=== PATIENT | female | born 1930 | race Caucasian/White ===

== ENCOUNTER 2016-09-25 11:15 | Inpatient (IN) | payer MEDICARE, BC, MEDICAID ==
[~2016-09-25] VITALS: Ht 160 cm; Wt 73.2 kg
--- NOTE | ~2016-09-25 | DS ---
[facility] 86 Y [address] ROOM: [place] [address] LOCATION: GPCU ADMIT DATE: 09/25/2016 Discharge Summary DISCHARGE DATE: 09/30/2016 FAMILY PHYSICIAN: Pancho Coronel MD ATTENDING PHYSICIAN: Aubrey Hameed V ANTICIPATED DATE OF DISCHARGE: 09/30/2016. PRIMARY DIAGNOSES FOR THIS HOSPITALIZATION: 1. Nephrotic syndrome. 2. Anasarca. CHRONIC DIAGNOSES: 1. Severe Alzheimer's dementia. 2. Essential hypertension. PROCEDURES PERFORMED: The procedures performed was a kidney biopsy. CONSULTANTS: The consultants who follows the patient is Dr. Ahmadi of Nephrology. SUMMARY OF HOSPITALIZATION: This is an 86-year-old female who was admitted to the hospital with profound anasarca. The patient was initially on Bumex drip and subsequently on IV Bumex with remarkable improvement (she diuresed for approximately 15 L). She has undergone a kidney biopsy on the 29 of September without any complications. At this point, the patient is ready to be discharged back to the [facility] facility, where she resides. She is to follow up with primary care provider, Pancho Coronel, and she will receive a call from Dr. Ahmadi's office with an appointment once the kidney biopsy results are back. DISCHARGE MEDICATIONS: Her medications all remain the same except for the addition of Bumex 1 mg p.o. every morning, Zaroxolyn 5 mg every morning, and potassium chloride 40 mEq p.o. every morning. She is not to resume aspirin for 1 week from today. She is to receive regular electrolyte checks every 3 days until they stabilize as she will be on high-dose diuretic. Time dedicated to this patient encounter is 35 minutes. PATIENT'S NAME: FELIPE ROD [facility] AGE: 86 Y [address] ROOM: [place] [address] LOCATION: GPCU ADMIT DATE: 09/25/2016 Discharge Summary DISCHARGE DATE: 09/30/2016 FAMILY PHYSICIAN: Pancho Coronel MD ATTENDING PHYSICIAN: Aubrey Hameed MD AVK/modl /[id number] CC: Pancho Coronel MD d: 10/01/16 0331 t: 10/16/16 0515, DISCHARGE SUMMARY
--- NOTE | ~2016-09-25 | HP ---
PATIENT'S NAME: [facility] AGE: 86 Y [address] ROOM: [place] [address] LOCATION: GPCU ADMIT DATE: 09/25/2016 History & Physical DISCHARGE DATE: FAMILY PHYSICIAN: Pancho Coronel MD ATTENDING PHYSICIAN: CHANDLER ESPOSITO V DATE OF SERVICE: CHIEF COMPLAINT: Anasarca. HISTORY OF PRESENT ILLNESS: This is obtained entirely from the transferring physician and medical records. This is an 86-year-old female with advanced dementia, who was being treated as outpatient for worsening acute kidney injury and anasarca. Today, Dr. Ahmadi decided that the patient needs to be admitted for Bumex drip and further workup. The patient is quite demented, and at this point, volunteers no complaints aside from not wanting to be here. She is alert and oriented x1. REVIEW OF SYSTEMS: She denies any chest pain, shortness of breath, nausea, vomiting, diarrhea, or diaphoresis. All systems have been reviewed and negative aside from pertinent positives as mentioned above. PAST MEDICAL HISTORY: As extracted from our records as well as custodial documentation is remarkable for Alzheimer's dementia quite advanced, insulin-dependent diabetes, essential hypertension, GERD, hyponatremia, constipation, ulcerative colitis, hyperlipidemia, allergic rhinitis, cataracts, artificial hip, epilepsy though not further clarified, vitamin D deficiency. FAMILY HISTORY: Cannot be completed due to dementia. SOCIAL HISTORY: Cannot be done due to dementia. CURRENT MEDICATIONS ARE: 1. Aspirin. 2. Colace. 3. Dilantin. 4. Donepezil. 5. Dulcolax. 6. Fish oil. PATIENT'S NAME: [facility] AGE: 86 Y [address] ROOM: [place] [id number] LOCATION: GPCU ADMIT DATE: 09/25/2016 History & Physical DISCHARGE DATE: FAMILY PHYSICIAN: Pancho Coronel MD ATTENDING PHYSICIAN: CHANDLER ESPOSITO V 7. Glucagon. 8. 120 of Lasix daily. 9. Losartan. 10. Milk of magnesia. 11. Minocycline. 12. Multivitamin. 13. Namenda. 14. Nasal saline. 15. Omeprazole. 16. MiraLAX. 17. Potassium chloride. 18. Metformin. 19. Sulfasalazine. 20. Tums. 21. Tylenol Extra Strength. 22. Vitamin D3. PHYSICAL EXAMINATION: VITAL SIGNS: Blood pressure of 190s over 80s, heart rate is in the 80s, saturating 97% on room air, afebrile, respirations 16. GENERAL: Appears as an elderly frail female, in no acute distress. NEUROLOGICAL: Nonfocal. PSYCHIATRIC: Reveals quite a depressed mood and lack of orientation to time or place. LUNGS: Significant for crackles at bases bilaterally, extending approximately 1[address] HEART. Regular rate and rhythm without appreciable murmurs, gallops, or rubs. GI: Abdomen is soft, nontender, nondistended. : Reveals no costovertebral angle tenderness. VASCULAR: Reveals 2+ pedal pulses and a diffuse whole body anasarca. SKIN: Warm and dry. MUSCULOSKELETAL: Deferred. LABORATORY DATA: No studies are available as of yet. ASSESSMENT AND PLAN: This is an 86-year-old female who will be admitted with, 1. Acute kidney injury/anasarca and this will be worked up by Nephrology Service and we will defer to them. We will get just basic baseline electrolytes. 2. Documented history of diabetes. We will follow her Accu-Cheks and decide whether coverage is needed or not. 3. History of ulcerative colitis. We will continue her on sulfasalazine. 4. Dementia. Continue Namenda and Aricept. PATIENT'S NAME: FELIPE ROD [facility] AGE: 86 Y [address] ROOM: [place] [address] [facility] ADMIT DATE: 09/25/2016 History & Physical DISCHARGE DATE: FAMILY PHYSICIAN: Pancho Coronel MD ATTENDING PHYSICIAN: CHANDLER ESPOSITO V 5. Goals of care. This clear documentation of DNR/DNI and her custodial record and we will respect those wishes. We will confirm with family members, once they arrive. 6. Accelerated hypertension. This is likely due to nephrotic syndrome. We will control the patient's blood pressure with calcium channel blockers. 7. Additional management depend on clinical course. Time dedicated to the patient's encounter is 35 minutes. MD STEVE TEE/robinson /[id number] D: [id number] T: [id number] HISTORY & PHYSICAL
--- NOTE | ~2016-09-25 | CON ---
PATIENT'S NAME: FELIPE ROD [facility] AGE: 86 Y [address] ROOM: [id number] [place], [place] [address] LOCATION: GPCU ADMIT DATE: 09/25/2016 Consultation DISCHARGE DATE: FAMILY PHYSICIAN: Pancho Coronel MD ATTENDING PHYSICIAN: CHANDLER ESPOSITO V DATE OF CONSULTATION: 09/25/2016 FAMILY PHYSICIAN: Dr. Zhao. REQUESTING PHYSICIAN: Hospitalist Dr. Esposito. REASON FOR CONSULTATION: Generalized edema and proteinuria. HISTORY OF PRESENT ILLNESS: The patient is an 86-year-old white female, with history of dementia. She had a fall approximately 2 years ago fracturing her pelvis and since then, she has been at [facility]. The patient reports that she had borderline diabetes and she is on diet control but I noticed that her recent hemoglobin A1c was less than 4.0. She was in her usual state until in the mid of the August, she started noticing swelling of her lower extremities. She gained more than 20 pounds over the last one month. Her usual dose of Lasix 40 mg was increased to 80 mg 3 times a day but she continues to gain weight. At this point, Dr. Sierra did try to collect 24-urine. Unfortunately, the collection was inadequate, but she was noted to have 405 mg of protein and the urine volume was only 325 mL. The patient did have echocardiogram, ejection fraction was 60%. She had left ventricular hypertrophy. She also had a CT scan of the abdomen and pelvis as there was some mass in the abdomen, pelvis, or inguinal region. Bilateral kidneys were unremarkable. Her creatinine on September 23, 2016, was 0.6 but her albumin was low at 1.9. She is very uncomfortable with her leg swelling. She therefore had to be admitted to the hospital for further workup and management. REVIEW OF SYSTEMS: GENERAL: She gained about 25 pounds over the last one month. HEENT: Denies any sore throat or sinus congestion. CARDIOVASCULAR: Denies any chest pain, dyspnea on exertion. RESPIRATORY: Denies any cough or sputum production. GASTROINTESTINAL: Denies any abdominal pain, nausea, or vomiting. GENITOURINARY: Denies any dysuria. MUSCULOSKELETAL: She has pain in the legs. SKIN: Denies any rash or pruritus. [facility]GE: 86 Y [address] ROOM: [address] [address] [facility] ADMIT DATE: 09/25/2016 Consultation DISCHARGE DATE: FAMILY PHYSICIAN: Pancho Coronel MD ATTENDING PHYSICIAN: CHANDLER ESPOSITO V IMMUNOLOGIC: Denies any allergies or hay fever. LYMPHATICS: Denies any lymph node enlargement. HEMATOLOGIC: Denies any easy bruising. ENDOCRINE: Denies any heat or cold intolerance. PSYCHIATRY: Denies any sadness, crying spells, poor concentration, or panic attack. ALLERGIES: ALLERGIC TO PENICILLIN. MEDICATIONS: Medicines at the senior living include. 1. Namenda 10 mg a day. 2. Huckabay nasal spray. 3. Omeprazole 20 mg a day. 4. Polyethylene glycol 17 g p.r.n. 5. Potassium 10 mEq a day. 6. Simethicone 125 mg a day. 7. Sulfasalazine 500 mg 3 times a day. 8. Tums 500 mg 2 tablets p.r.n. 9. Tylenol p.r.n. 10. Vitamin D3 400 international units a day. 11. Dulcolax 10 mg p.r.n. 12. Ensure liquid every day. 13. Glucagon p.r.n. 14. Glucose p.r.n. 15. Lasix 80 mg 3 times a day. 16. Levothyroxine 175 mcg a day. 17. Losartan 100 mg once a day. 18. Milk of magnesia every day. 19. Minocycline 100 mg every day. 20. Multivitamin once a day. 21. Aspirin 81 mg a day. 22. Colace 100 mg a day. 23. Dilantin 100 mg 3 times a day. 24. Donepezil 10 mg every day. PAST MEDICAL HISTORY: Dementia, osteoporosis, status post fracture of the hip, sinusitis, reflux esophagitis, pernicious anemia, vitamin D deficiency, diarrhea by history, diabetes mellitus by history, dysuria, hypertension, palpitation, hypothyroidism, hyponatremia, seizure disorder, hyperlipidemia, benign neoplasm of the skin, allergic rhinitis, glaucoma, anxiety. PAST SURGICAL HISTORY: PATIENT'S NAME: [facility] AGE: 86 Y [address] ROOM: [id number] [place], [place] [address] [facility] ADMIT DATE: 09/25/2016 Consultation DISCHARGE DATE: FAMILY PHYSICIAN: Panhco Coronel MD ATTENDING PHYSICIAN: CHANDLER ESPOSITO V Appendectomy, cholecystectomy, tonsillectomy. SOCIAL HISTORY: She lives in [facility] over the last 2 years ago. Her family is involved in her care. No history of tobacco or alcohol. FAMILY HISTORY: No family history of kidney disease or dialysis. PHYSICAL EXAMINATION: GENERAL: This is an 86-year-old white female, sitting in the wheelchair, looks tired. VITAL SIGNS: Temperature 99.3, pulse 82, systolic blood pressure 164, diastolic 68, weight is 195.6 pounds. HEENT: Head is normocephalic. Pupils are round and equal. Normal eyelid and pale conjunctivae. Oral cavity clear. Loss of tooth. Dry mucosa. NECK: Trachea is central. No thyromegaly. Unable to evaluate jugular venous pulsation. HEART: Sounds are audible in all the areas without any gallop or murmur. There is no peripheral rub. Pulses regular in rhythm. LUNGS: Bilaterally clear to auscultate. No intercostal retraction. ABDOMEN: Obese, soft, nontender, could not palpate the liver or spleen. EXTREMITIES: She has no clubbing or cyanosis. She has 3+ leg edema all the way up to her hip. SKIN: No sign of vasculitis. LYMPHATICS: I did not examine lymphatics. HIGHER PSYCHIATRIC FUNCTION: She has poor memory. LABORATORY DATA: Blood work from September 23, 2016, shows glucose 89, BUN of 19, creatinine of 0.67, sodium 132, potassium 4.3, chloride 100, bicarbonate 27.5, calcium 7.9, albumin of 1.9. ASSESSMENT: 1. Generalized edema. Most likely, this is from nephrotic syndrome. The patient does not have any long liver disease. She has preserved systolic function of the heart. She does have some diastolic dysfunction, probably with her LVH. She, however, has proteinuria and her albumin is low at 1.9. 2. History of hyponatremia. 3. Dementia. 4. Hypothyroidism. 5. History of seizure disorder. 6. Hyperlipidemia. PATIENT'S NAME: FELIPE ROD [facility] AGE: 86 Y [address] ROOM: [id number] [place], [place] [address] LOCATION: GPCU ADMIT DATE: 09/25/2016 Consultation DISCHARGE DATE: FAMILY PHYSICIAN: Pancho Coronel MD ATTENDING PHYSICIAN: CHANDLER ESPOSITO V PLAN: She has massive edema and she has also swelling of the lower abdomen. She has generalized edema now. I agree that she needs to be hospitalized. We will start her on intravenous Bumex drip along with intravenous albumin. I did order all the serologic studies including hepatitis B and C. We will check coagulation profile and the patient will need a CT-guided kidney biopsy. We will insert a Sanches catheter. Collect urine for urine studies including immunoelectrophoresis. I will follow her electrolytes very closely while she is in the hospital. I would like to thank Dr. Esposito for allowing me to participate in this patient's care. M MD DIEGO SMITH/robinson /[id number] CC: MD Jace Tian MD d: 09/25/16 1223 t: 09/26/16 1031, CONSULTATION REPORT
[~2016-09-25 11:15] MED LIST: ACETAMINOPHEN500 M1 PO; ASPIRIN EC81 MG PO; AZULFIDINE 500 MG PO; BENTYL10 MG PO; COLACE100 MG PO; COZAAR100 MG PO; DECLOMYCIN300 MG PO; DILANTIN100 MG PO; DRISDOL 5050000 UNIT PO; DULCOLAX10 MG R; EXELON3 MG PO; FISH OIL 1,0001 EACH PO; K-TAB 10MEQ10 MEQ PO; LEVOTHROID(SY175 MCG PO; MIRALAX17 GM PO; MYCELEX10 MG PO; NAMENDA10 MG PO; NORCO 5-325 MG1 TAB PO; OCEAN NASAL) (A44 ML NOSE; PHILLIPS'400 MG/5 M PO; PRILOSEC20 MG PO; THERAGRAN-M1 TAB PO; XARELTO10 MG PO
--- NOTE | 2016-09-25 12:45 | NUR ---
Pt is 86 y/o female admit for nephrotic syndrome for hospitalist. Pt alert and oriented x2. Has dementia and repeats questions,statements. Resides at [facility] in [place]. Hx htn,hypercholest,dementia,gerd, basal cell,urgency,hypothyroid. Pt's daughter is POA and here with her. Daughter reports pt has been dealing with elevated BP and edema in lower legs for about a month. Her PCP tried her on Norvasc with no improvement and then adjusted her regular BP meds but edema remained. She was sent to see and he referred her to .
[2016-09-25] MEDS ORDERED: ALLERGY SERUM SUB-Q (12:51)
[2016-09-25] MEDS ORDERED: ARICEPT10 MG PO (12:53)
[2016-09-25] MEDS ORDERED: GLUCAGON EMERGEN1 MG IM (12:56)
[2016-09-25] MEDS ORDERED: GLUCOSE GEL38 GM PO (12:57)
[2016-09-25] MEDS ORDERED: LASIX40 MG PO (12:57)
[2016-09-25] MEDS ORDERED: LASIX80 MG PO (12:58)
[2016-09-25] MEDS ORDERED: MINOCIN100 M2 PO (13:00)
[2016-09-25] MEDS ORDERED: GAS-X125 MG PO ×2 (13:05→13:06)
[2016-09-25] MEDS ORDERED: TUMS REGULAR ST1 TAB PO (13:07)
[2016-09-25] MEDS ORDERED: TYLENOL EXTRA500 MG PO (13:09)
[2016-09-25] MEDS ORDERED: VITAMIN D-40400 UNIT PO (13:10)
[2016-09-25 14:49] LABS: ANION GAP 13.4 (10.0-19.0); BLOOD UREA NITROGEN 16 mg/dL (6-24); CALCIUM 7.6 mg/dL (8.5-10.5); CHLORIDE 102 mMol/L (96-110); CO2 24 mMol/L (22-32); CREATININE 0.5 mg/dL (0.5-1.1); ESTIMATED GFR (MDRD EQUATION) > 60; MAGNESIUM 2.2 mg/dL (1.3-2.6); PHOSPHORUS 3.3 mg/dL (2.5-4.9); POTASSIUM 4.4 mMol/L (3.7-5.1); SODIUM 135 mMol/L (135-145)
--- NOTE | 2016-09-25 19:34 | NUR ---
Significant Event: Alert. Disoriented x3, answers close to the appropriate response, reoriented and repeated situations frequently. SBP 160-200, bumex gtt at 1mg/hr. Sanches placed. L)forearm peripheral IV placed by PICC RN. 3+ edema to legs. Denies SOB, sats mid 90's on room air. 2 assist pivot with transfers. 24 hour urine collection began at 1305. Accuchek BID.
[2016-09-26 05:24] LABS: BASOPHIL % 0.7 %; EOSINOPHIL # 0.2 K/uL (0.0-0.5); EOSINOPHIL % 4.3 %; IMMATURE GRANULOCYTE % 0.9 %; LYMPHOCYTE # 0.9 K/uL (0.8-4.0); LYMPHOCYTE % 19.5 %; MCHC 33.6 gm/dL (32.0-36.5); MCV 105.8 fl (83.0-98.0); MONOCYTE # 0.7 K/uL (0.0-1.0); MONOCYTE % 16.9 %; NEUTROPHIL # (ANC) 2.5 K/uL (1.8-7.8); NEUTROPHIL % 57.7 %; NRBC % 0 /100WBC (0-0.00); PLATELET COUNT 174 K/uL (150-450); RDW-CV 14.6 % (11.9-14.6); WBC 4.4 K/uL (4.0-11.0)
[2016-09-26 05:30] LABS: HEMOGLOBIN 7.4 g/dL (10.0-15.0); MCH 35.6 pg (27.0-34.0); RBC 2.08 M/uL (3.00-5.00)
[2016-09-26 05:32] LABS: PROTIME 10.7 SECONDS (9.6-11.1); PTT 30 SECONDS (25-32)
[2016-09-26 05:36] LABS: ALBUMIN 2.3 gm/dL (3.5-5.0); ANION GAP 12.4 (10.0-19.0); BLOOD UREA NITROGEN 15 mg/dL (6-24); CALCIUM 7.5 mg/dL (8.5-10.5); CHLORIDE 101 mMol/L (96-110); CO2 27 mMol/L (22-32); CREATININE 0.5 mg/dL (0.5-1.1); ESTIMATED GFR (MDRD EQUATION) > 60; PHOSPHORUS 3.7 mg/dL (2.5-4.9); SODIUM 137 mMol/L (135-145)
--- NOTE | 2016-09-26 05:39 | NUR ---
Significant events: Pt A/O to self and birthday. VSS, SBP 140-170's. On RA. Bumex gtt continues. 4200mL out of thomas. Got up to bedside commode but pt did not tolerate well. Was restless most of shift. Pt was on and off agitated with staff. Pulled IV out. Tylenol x1 for generalized achiness.
[2016-09-26 05:40] LABS: POTASSIUM 3.4 mMol/L (3.7-5.1)
--- NOTE | 2016-09-26 11:44 | NUR ---
Reviewed Katia's chart, talked with BRIDGET Vance and Dr. Carrizales. Katia is from a SNF in [facility], and will return there when ready. DR. Carrizales tells me it will most likely be next week sometime before she is ready to go back. No family in the room to visit with at this time, will stop back by later to touch base with them and explain CM role to them. Will continue to follow and assist. Plan for return back to SNF.
[2016-09-26 14:30] LABS: HEMATOCRIT 24.1 % (30.0-46.0)
--- NOTE | 2016-09-26 17:34 | NUR ---
Significant Event: ALERT, D/O TO TIME & PLACE. AGITATED AT TIMES. UP WITH 1-2 ASSIST, GB AND WALKER. EDEMA TO BLE IMPROVING, 2+ PITTING. VSS. POWERGLIDE PLACED TO RIGHT UPPER FA, BUMEX GTT INFUSING @ 1 MG/HR. LEFT WRIST PIV SL'D. ALBUMIN 50 GM IV X1 GIVEN. KCL 40 MEQ IV X1 GIVEN. TOSCANO CATH PATENT, 2650 ML UOP. FAMILY VISITED IN AFTERNOON. Follow up: POSSIBLE RENAL BIOPSY THURSDAY.
--- NOTE | 2016-09-27 04:47 | NUR ---
Significant Event: Patient has been alert throughout the night. Continues to be disoriented to time and place. Oriented to self and can state her birthdate. During shift change report, patient pulled out her midline IV catheter and other peripheral IV catheter. She was also very combative and kept taking telemetry electrodes off. Attempted to reorient patient but she continued to be combative and agitated. Order obtained for mitten restraints. Continues to be in mitten restraints. Zyprexa, Seroquel, and Haldol given x1 last night. Patient did sleep some about 30 min after Haldol administration. Prior to that she was hitting and kicking staff as well as attempting to get out of bed. Otherwise, vital signs have been stable. Did need PRN labetolol for SBP > 180. Continues on room air. Bumex drip continues at 1 mg/hr. Sanches to DD with 4200 mL UOP. Denies any pain. Follow up: Continue to monitor per plan of care.
[2016-09-27 06:01] LABS: BASOPHIL % 0.6 %; EOSINOPHIL # 0.2 K/uL (0.0-0.5); EOSINOPHIL % 3.4 %; HEMATOCRIT 24.5 % (30.0-46.0); IMMATURE GRANULOCYTE % 0.6 %; LYMPHOCYTE # 0.7 K/uL (0.8-4.0); LYMPHOCYTE % 14.7 %; MCH 33.9 pg (27.0-34.0); MCHC 32.2 gm/dL (32.0-36.5); MCV 105.2 fl (83.0-98.0); MONOCYTE # 0.8 K/uL (0.0-1.0); MONOCYTE % 16.9 %; MPV 9.2 fl (9.4-12.4); NEUTROPHIL # (ANC) 3.2 K/uL (1.8-7.8); NEUTROPHIL % 63.8 %; NRBC % 0 /100WBC (0-0.00); PLATELET COUNT 191 K/uL (150-450); RBC 2.33 M/uL (3.00-5.00); RDW-CV 14.5 % (11.9-14.6)
[2016-09-27 06:05] LABS: HEMOGLOBIN 7.9 g/dL (10.0-15.0)
[2016-09-27 06:15] LABS: ANION GAP 8.9 (10.0-19.0); BLOOD UREA NITROGEN 16 mg/dL (6-24); CALCIUM 7.9 mg/dL (8.5-10.5); CHLORIDE 98 mMol/L (96-110); CO2 34 mMol/L (22-32); CREATININE 0.6 mg/dL (0.5-1.1); ESTIMATED GFR (MDRD EQUATION) > 60; MAGNESIUM 1.8 mg/dL (1.3-2.6); SODIUM 138 mMol/L (135-145)
[2016-09-27 06:17] LABS: POTASSIUM 2.9 mMol/L (3.7-5.1)
[2016-09-27 12:23] LABS: PROTIME 10.6 SECONDS (9.6-11.1)
--- NOTE | 2016-09-27 15:57 | NUR ---
Significant Event: ALERT, DISORIENTED TO TIME AND PLACE. AGITATED AND UNCOOPERATIVE AT TIMES. MITTEN RESTRAINTS REMAIN INTACT. VSS. ROOM AIR. C/O HEADACHE, PRN TYLENOL GIVEN X1. LEFT FA IV WITH BUMEX 1 MG/HR INFUSING. IV KCL 80 MEQ X1 OVER 8 HOURS FOR K+ LEVEL OF 2.9 THIS AM. RE-CHECK @ 1500 3.8. WILL RE-CHECK @ 2000 TONIGHT. TOSCANO CATHETER INTACT WITH 2225 ML UOP. UP WITH 1 ASSIST, GB AND WALKER. DAUGHTER AT BEDSIDE THIS AFTERNOON, VERY HELPFUL. Follow up: PLAN FOR CT GUIDED RENAL BIOPSY ON THURSDAY.
--- NOTE | 2016-09-28 04:09 | NUR ---
Significant Event: Patient has been alert on/off, drowsy at times. When she is alert, she yells out and requires several attempts to reorient her but becomes confused immediately afterwards. Continues to be in mitten restraints due to patient pulling at wires and IV. She has been mostly cooperative with cares. Oriented to self only, able to state name and birthdate. Bumex drip continues at 1 mg/hr, Sanches in place with 2700 mL UOP. Vital signs stable, on room air. Tylenol given x1 for headache and cold wash cloth provided, with relief. Follow up: Continue to monitor per plan of care. Still need hematest x3. CT guided kidney biopsy on Thursday.
[2016-09-28 06:44] LABS: HEMATOCRIT 26.7 % (30.0-46.0)
[2016-09-28 06:57] LABS: ANION GAP 13.5 (10.0-19.0); BLOOD UREA NITROGEN 18 mg/dL (6-24); CALCIUM 8.4 mg/dL (8.5-10.5); CHLORIDE 94 mMol/L (96-110); CO2 34 mMol/L (22-32); CREATININE 0.6 mg/dL (0.5-1.1); ESTIMATED GFR (MDRD EQUATION) > 60; POTASSIUM 3.5 mMol/L (3.7-5.1); SODIUM 138 mMol/L (135-145)
--- NOTE | 2016-09-28 15:17 | NUR ---
Significant Event: ORIENTED TO SELF, D/O TO TIME AND PLACE. MORE FORGETFUL TODAY THAN USUAL PER FAMILY. WAS LOWERED TO THE FLOOR THIS AM AFTER PATIENT WENT UNRESPONSIVE ON HER WAY TO THE BATHROOM. INCONTINENT OF STOOL AT THAT TIME. ORTHOSTATIC BP NEGATIVE. BUMEX GTT DC'D, CHANGED TO 1 MG BUMEX BID IV. TOSCANO CATHETER PATENT WITH 1975 ML UOP. BM X2. PIV TO LEFT FA SL'D. K+ THIS AM 3.5, 40 MEQ IV KCL X1 GIVEN. FAMILY AT BEDSIDE THIS AFTERNOON. NPO AFTER MIDNIGHT FOR RENAL BIOPSY IN AM. Follow up: CONTINUE TO MONITOR CLOSELY.
--- NOTE | 2016-09-29 04:13 | NUR ---
Significant Event: Patient alert, disoriented to time and sometimes place. Patient does get more confused and restless as the night goes on. Zyprexa, seroquel, and haldol all given due to patient pulling at catheter and trying to get out of bed, yelling out, very restless. Patient has rested better later into the night. She is now drowsy, but more cooperative. Blood pressure this morning of 186/80-PRN labetalol given x1. Will reassess 1 hour after. 575ml out of thomas. Room Air. NPO since midnight. Follow up: Renal Biopsy today
[2016-09-29 06:08] LABS: BASOPHIL % 0.5 %; EOSINOPHIL # 0.3 K/uL (0.0-0.5); EOSINOPHIL % 4.6 %; HEMATOCRIT 25.7 % (30.0-46.0); HEMOGLOBIN 8.5 g/dL (10.0-15.0); IMMATURE GRANULOCYTE # 0.1 K/uL (0.0-0.3); IMMATURE GRANULOCYTE % 0.9 %; LYMPHOCYTE % 13.6 %; MCH 35.3 pg (27.0-34.0); MCHC 33.1 gm/dL (32.0-36.5); MCV 106.6 fl (83.0-98.0); MPV 9.2 fl (9.4-12.4); NEUTROPHIL % 66.4 %; NRBC % 0 /100WBC (0-0.00); PLATELET COUNT 205 K/uL (150-450); RBC 2.41 M/uL (3.00-5.00); RDW-CV 14.7 % (11.9-14.6); WBC 7.5 K/uL (4.0-11.0)
[2016-09-29 06:24] LABS: ANION GAP 10.4 (10.0-19.0); BLOOD UREA NITROGEN 25 mg/dL (6-24); CALCIUM 7.9 mg/dL (8.5-10.5); CHLORIDE 99 mMol/L (96-110); CO2 32 mMol/L (22-32); CREATININE 0.6 mg/dL (0.5-1.1); ESTIMATED GFR (MDRD EQUATION) > 60; MAGNESIUM 2.1 mg/dL (1.3-2.6); POTASSIUM 3.4 mMol/L (3.7-5.1); SODIUM 138 mMol/L (135-145)
[2016-09-29 10:16] LABS: PROTIME 10.7 SECONDS (9.6-11.1)
[2016-09-29 10:20] LABS: TIME 24 h (()); VOLUME 7600 mL (())
[2016-09-29 11:44] LABS: BASOPHIL % 0.6 %; EOSINOPHIL # 0.2 K/uL (0.0-0.5); EOSINOPHIL % 3.3 %; HEMATOCRIT 26.8 % (30.0-46.0); HEMOGLOBIN 8.7 g/dL (10.0-15.0); IMMATURE GRANULOCYTE # 0.1 K/uL (0.0-0.3); LYMPHOCYTE % 14.3 %; MCH 35.5 pg (27.0-34.0); MCHC 32.5 gm/dL (32.0-36.5); MCV 109.4 fl (83.0-98.0); MONOCYTE # 0.9 K/uL (0.0-1.0); MONOCYTE % 12.9 %; MPV 8.9 fl (9.4-12.4); NEUTROPHIL # (ANC) 4.7 K/uL (1.8-7.8); NEUTROPHIL % 67.9 %; NRBC % 0 /100WBC (0-0.00); PLATELET COUNT 200 K/uL (150-450); RBC 2.45 M/uL (3.00-5.00); RDW-CV 14.7 % (11.9-14.6); WBC 6.9 K/uL (4.0-11.0)
[2016-09-29 11:58] LABS: PROTIME 10.6 SECONDS (9.6-11.1)
--- NOTE | 2016-09-29 12:39 | NUR ---
Call to update [facility] in [place]. Rola in Social Service wasn't available, so I left a VM updating her to Katia and what was going on with her. Left her my contact information on the VM so she could call me if she had anymore questions or needed clinical faxed to them. Will continue to follow and assist. Plan return back to [facility] in [place] when medically cleared to do so.
--- NOTE | 2016-09-29 17:23 | NUR ---
Significant Event: PT NPO ALL SHIFT UNTIL 1400 WHEN SHE WENT FOR KIDNEY BX. ATE SOME AND GOT CAUGHT UP ON MEDS WHEN SHE GOT BACK TO ROOM AND HAD SOMETHING TO EAT. VERY QUIET TODAY, 1 MITTEN STILL ON. VSS, DRESSING TO RT LOWER BACK CDI. Follow up: MONITRO BACK BX SITE
--- NOTE | 2016-09-30 04:51 | NUR ---
Significant event: Patient alert to self and even place at times but needs a lot of reminders as she is very forgetful. Sanches intact with 350ml of UOP. Yelled out several times throughout the night but did go to sleep around 0230. All VSS on RA. Possible discharge to [facility] today.
[2016-09-30 06:24] LABS: BASOPHIL % 0.4 %; EOSINOPHIL # 0.4 K/uL (0.0-0.5); EOSINOPHIL % 5.8 %; HEMATOCRIT 25.3 % (30.0-46.0); HEMOGLOBIN 8.1 g/dL (10.0-15.0); IMMATURE GRANULOCYTE # 0.1 K/uL (0.0-0.3); IMMATURE GRANULOCYTE % 1.5 %; MCH 35.4 pg (27.0-34.0); MCV 110.5 fl (83.0-98.0); MONOCYTE # 1.2 K/uL (0.0-1.0); MONOCYTE % 16.1 %; MPV 9.2 fl (9.4-12.4); NEUTROPHIL # (ANC) 4.5 K/uL (1.8-7.8); NEUTROPHIL % 62.2 %; NRBC % 0 /100WBC (0-0.00); PLATELET COUNT 193 K/uL (150-450); RBC 2.29 M/uL (3.00-5.00); RDW-CV 14.7 % (11.9-14.6); WBC 7.2 K/uL (4.0-11.0)
--- NOTE | 2016-09-30 11:11 | NUR ---
1025 Stopped by to review Katia's chart and talk with nursing. Her chart was up front and her RN Melinda informs me that she is going to be dismissed today and she is under the impression that the [facility], is going to be transporting her back to the SNF. I phoned [facility], left her a VM as she didn't answer, asked that she call me back re:discharge plans for Katia. 1035 Call back from [facility], she tells me that she knows that Katia is going to be dismissed today and she wasn't going to pick her up but the SNF van would be. I asked if she had set that up yet, she tells me she has not. I let her know I would be more than happy to do that for her. She was fine with this. I phoned over to [facility] in [place], talked with Rola, updated her that Katia was cleared to discharge today. She was going to check with the driver education instructor and see what time they could be here to transport her back to them today. In the meantime, I have the RN to RN number to Melinda to call in report before Katia left. I also faxed over dismissal orders to SNF as well. 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 Will continue to follow and assist. Plan for return back to SNF today.
[2016-09-30 14:19] LABS: CH50 COMPLEMENT 138 (60-185)
--- NOTE | 2016-09-30 14:44 | NUR ---
1345 PT DISMISSED TO [facility] WITH [employer] DES[employer]INE[employer] AND TRANSFER PACKET. AT TIME OF DC PT IS ALERT AND ORIENTED TO PERSON AND PLACE NOT TIME OR DATE. UNSTEADY ON FEET WHEN UP BUT DOES OK WITH GAIT BELT WALKER AND ASSIST OF ONE. LUNGS ARE CLEAR ABDOMEN IS SOFT AND NONTENDERW ITH PRESENT BOWEL SOUNDS. IV TO LT FOREARM DC'D CATH INTACT. PULSES STRONG SHE DOES HAVE 2-3+ LOWER EXTREMITY EDEMA. VSS, ALL INSTRUCTIONS AND MEDICATIONS/PRESCRIPTIONS IN PACKET FOR PRISON. REPORT CALLED EARLIER THIS SHIFT. FAMILY AWARE. PT W/C IS ALREADY AT THE HOME.
[2016-09-30 16:00] LABS: PROTEIN [CALC] 8664 mg/24h (())
== END 2016-09-30 13:45 | DRG 699 ==
LOC: GPCU 11:44
PROVIDERS: Hospitalist; Internal Medicine Nephrology; Nurse Practitioner; Radiology Diagnostic Radiology; ADMIT Internal Medicine
PROC: 0TB03ZX Excision of Right Kidney, Percutaneous Approach, Diagnostic (ICD-10-PCS; principal; 2016-09-29)
DX: N04.9 Nephrotic syndrome with unspecified morphologic changes (principal); K51.90 Ulcerative colitis, unspecified, without complications; N17.9 Acute kidney failure, unspecified; G30.9 Alzheimer's disease, unspecified; F02.80 Dementia in other diseases classified elsewhere, unspecified severity, without behavioral disturbance, psychotic disturbance, mood disturbance, and anxiety; E11.9 Type 2 diabetes mellitus without complications; I10 Essential (primary) hypertension; D64.9 Anemia, unspecified; K21.9 Gastro-esophageal reflux disease without esophagitis; E78.5 Hyperlipidemia, unspecified; Z79.82 Long term (current) use of aspirin; E87.6 Hypokalemia
CPT/HCPCS: C1751; J1630; J1644; J3480; J7040; J7050; P9047